=== PATIENT | female | born 1990 | race Caucasian/White ===

== ENCOUNTER 2018-05-18 23:43 | Emergency (ER) | payer BC ==
[~2018-05-18] VITALS: Ht 160 cm; Wt 97.1 kg
[2018-05-18 23:45] VITALS: Ht 160 cm; Wt 97.1 kg
[2018-05-19 03:00] VITALS: BP 103/54
== END 2018-05-19 03:00 | disposition home or self-care (01) ==
LOC: ED 23:43
DX: B34.9 Viral infection, unspecified (principal); J40 Bronchitis, not specified as acute or chronic
CPT/HCPCS: J1885; J7030; J7613; J7644; Q0162

== ENCOUNTER 2018-06-17 04:34 | Emergency (ER) | payer BC ==
[~2018-06-17] VITALS: Ht 162.6 cm; Wt 98.9 kg
[2018-06-17 04:41] VITALS: Ht 162.6 cm; Wt 98.9 kg
[2018-06-17 06:38] VITALS: BP 101/42
== END 2018-06-17 06:38 | disposition home or self-care (01) ==
LOC: ED 04:34
DX: L05.01 Pilonidal cyst with abscess (principal)
CPT/HCPCS: J2001

== ENCOUNTER 2018-06-19 16:40 | Emergency (ER) | payer BC ==
[~2018-06-19] VITALS: Ht 162.6 cm; Wt 97.1 kg
[2018-06-19 16:48] VITALS: Ht 162.6 cm; Wt 97.1 kg
[2018-06-19 18:47] VITALS: BP 110/74
== END 2018-06-19 18:47 | disposition home or self-care (01) ==
LOC: ED 16:40
DX: Z48.01 Encounter for change or removal of surgical wound dressing (principal)

== ENCOUNTER 2018-08-30 19:22 | Emergency (ER) | payer BC ==
[~2018-08-30] VITALS: Ht 160 cm; Wt 98.9 kg
[2018-08-30 19:49] VITALS: Ht 160 cm; Wt 98.9 kg
[2018-08-30 21:40] LABS: PLATELET COUNT 323 x10^3mcL (130-400); RED CELL DISTRIBUTION WIDTH 14.2 % (11.5-14.5)
[2018-08-30 21:43] LABS: BASOPHIL % 0 % (0-2)
[2018-08-30 21:53] LABS: CALCIUM 8.3 mg/dL (8.5-10.1); CARBON DIOXIDE 27.8 mmol/L (21-32); CHLORIDE SERUM 101 mmol/L (98-107); CREATININE SERUM 0.8 mg/dL (0.6-1.0); GFR1 > 60 mL/min; GLUCOSE SERUM 97 mg/dL (74-106); POTASSIUM SERUM 3.6 mmol/L (3.5-5.1); SODIUM SERUM 138 mmol/L (136-145)
[2018-08-30 21:57] LABS: ALBUMIN 3.7 g/dL (3.4-5.0); ALKALINE PHOSPHATASE 126 U/L (46-116); ALT/SGPT 36 U/L (14-59); AST/SGOT 14 U/L (15-37); BILIRUBIN TOTAL 0.47 mg/dL (0.20-1.00); LIPASE 68 IU/L (73-393); TOTAL PROTEIN, SERUM 8.2 g/dL (6.4-8.2)
[2018-08-30 22:39] LABS: UA SPECIFIC GRAVITY >=1.030 (1.005-1.035); microscopic required? YES; urine erythrocyte 1+ (NEGATIVE)
[2018-08-31 00:34] VITALS: BP 136/76
== END 2018-08-31 00:34 | disposition home or self-care (01) ==
LOC: ED 19:22
PROVIDERS: Emergency Medicine
DX: R10.84 Generalized abdominal pain (principal); R11.10 Vomiting, unspecified; R19.7 Diarrhea, unspecified
CPT/HCPCS: J1885; J2270; J2405; J7030; Q0092; Q0162; Q9967